=== PATIENT | female | born 1980 | race Caucasian/White ===

== ENCOUNTER 2017-02-06 11:36 | Emergency (ER) | payer OTHER ==
[~2017-02-06] VITALS: Ht 177.8 cm; Wt 81.8 kg
[~2017-02-06 11:36] MED LIST: NO HOME MEDICATIONS; PRENATAL1 TA1 PO; PROTONIX40 MG PO
[2017-02-06 11:39] VITALS: BP 121/52; TEMP 98.4
[2017-02-06] MEDS ORDERED: FLEXERIL 1010 MG/TAB PO (13:37)
[2017-02-06] MEDS ORDERED: NORCO 325 MG-51 TAB PO (13:37)
[2017-02-06 13:57] VITALS: PULSE 65
== END 2017-02-06 14:00 | disposition home or self-care (01) ==
LOC: COL.ER 11:36
DX: S16.1XXA Strain of muscle, fascia and tendon at neck level, initial encounter (principal); S39.012A Strain of muscle, fascia and tendon of lower back, initial encounter; V43.52XA Car driver injured in collision with other type car in traffic accident, initial encounter

== ENCOUNTER 2017-02-16 17:58 | Emergency (ER) | payer OTHER ==
[~2017-02-16] VITALS: Ht 177.8 cm; Wt 81.3 kg
[~2017-02-16 17:58] MED LIST changes: +FLEXERIL 1010 MG/TAB PO; +NORCO 325 MG-51 TAB PO
[2017-02-16 18:05] VITALS: TEMP 98.5
[2017-02-16 19:33] LABS: PH 5 (5-8); URINE APPEARANCE Hazy; URINE BACTERIA Rare /hpf; URINE BILIRUBIN Negative (NEGATIVE); URINE BLOOD Negative (NEGATIVE); URINE COLOR Yellow; URINE GLUCOSE Negative (NEGATIVE); URINE KETONE Trace (NEGATIVE)
[2017-02-16 20:49] VITALS: BP 117/81; PULSE 69
[2017-02-16] MEDS ORDERED: FLEXERIL 1010 MG/TAB PO (20:56)
== END 2017-02-16 21:08 | disposition home or self-care (01) ==
LOC: COL.ER 17:58
PROVIDERS: Nurse Practitioner
DX: S39.012A Strain of muscle, fascia and tendon of lower back, initial encounter (principal); M54.2 Cervicalgia; J45.909 Unspecified asthma, uncomplicated; G43.909 Migraine, unspecified, not intractable, without status migrainosus; Z98.890 Other specified postprocedural states; V49.40XA Driver injured in collision with unspecified motor vehicles in traffic accident, initial encounter
CPT/HCPCS: J1885

== ENCOUNTER 2017-03-29 14:00 | Outpatient (RCR) | payer OTHER ==
[2005-01-10 20:38] VITALS: PULSE 97; TEMP 99.3
== END 2017-05-26 13:12 | disposition home or self-care (01) ==
LOC: MKS.ESL.PT 14:00
DX: M54.5 Low back pain (principal); M54.2 Cervicalgia; V89.2XXS Person injured in unspecified motor-vehicle accident, traffic, sequela

== ENCOUNTER → 2017-04-18 | Outpatient (CLI) | payer OTHER ==
[2005-01-10 20:38] VITALS: PULSE 97; TEMP 99.3
== END ==
LOC: COL.RAD 14:27
DX: M43.8X4 Other specified deforming dorsopathies, thoracic region (principal); M54.5 Low back pain

== ENCOUNTER → 2017-05-25 | Outpatient (CLI) | payer OTHER ==
[2005-01-10 20:38] VITALS: TEMP 99.3
== END ==
LOC: COL.RAD 08:48
DX: M48.02 Spinal stenosis, cervical region (principal); M50.322 Other cervical disc degeneration at C5-C6 level; M50.31 Other cervical disc degeneration, high cervical region; M25.559 Pain in unspecified hip

== ENCOUNTER → 2017-06-23 | Outpatient (CLI) | payer OTHER ==
[2005-01-10 20:38] VITALS: TEMP 99.3
== END ==
LOC: COL.RAD 06-13 14:45
DX: M54.6 Pain in thoracic spine (principal)

== ENCOUNTER 2017-09-14 15:30 | Outpatient (RCR) | payer OTHER ==
[2005-01-10 20:38] VITALS: TEMP 99.3
== END 2017-09-25 | disposition home or self-care (01) ==
LOC: MKS.ESL.PT
DX: M54.5 Low back pain (principal); M54.2 Cervicalgia; V89.2XXS Person injured in unspecified motor-vehicle accident, traffic, sequela
CPT/HCPCS: G0283-GP

== ENCOUNTER 2017-11-22 12:45 | Outpatient (RCR) | payer OTHER ==
[2005-01-10 20:38] VITALS: TEMP 99.3
== END 2017-11-24 11:34 | disposition home or self-care (01) ==
LOC: MKS.ESL.PT 12:45
DX: M54.2 Cervicalgia (principal); M54.40 Lumbago with sciatica, unspecified side; V89.2XXD Person injured in unspecified motor-vehicle accident, traffic, subsequent encounter

== ENCOUNTER 2020-03-19 10:30 | Outpatient (RCR) | payer SELFPAY ==
[2005-01-10 20:38] VITALS: TEMP 99.3
== END 2020-04-15 | disposition home or self-care (01) ==
LOC: MKS.ESL.PT
DX: M53.3 Sacrococcygeal disorders, not elsewhere classified (principal)
CPT/HCPCS: G0283-GP

== ENCOUNTER 2021-04-19 13:19 | Emergency (ER) | payer OTHER ==
[~2021-04-19] VITALS: Ht 177.8 cm; Wt 81.8 kg
[2021-04-19 13:46] VITALS: TEMP 98.1
[2021-04-19] MEDS ORDERED: FLEXERIL 1010 MG/TAB PO (16:19)
[2021-04-19 16:28] VITALS: BP 130/64; PULSE 77
== END 2021-04-19 16:28 | disposition home or self-care (01) ==
LOC: COL.ER 13:19
DX: S16.1XXA Strain of muscle, fascia and tendon at neck level, initial encounter (principal); M25.511 Pain in right shoulder; R07.81 Pleurodynia; V48.5XXA Car driver injured in noncollision transport accident in traffic accident, initial encounter
CPT/HCPCS: J0780; J1885

== ENCOUNTER → 2022-10-06 | Outpatient (CLI) | payer SELFPAY ==
[2005-01-10 20:38] VITALS: TEMP 99.3
[~2022-10-06] MED LIST changes: +OMNICEF 300MG300 MG PO
== END ==
LOC: COL.RAD 05:28
DX: D25.9 Leiomyoma of uterus, unspecified (principal)

== ENCOUNTER 2023-06-24 13:42 | Emergency (ER) | payer SELFPAY ==
[~2023-06-24] VITALS: Ht 177.8 cm; Wt 81.8 kg
[2023-06-24 14:16] VITALS: TEMP 98.2
[2023-06-24 15:40] LABS: COLLECTION METHOD CLEAN CATCH
[2023-06-24 15:59] LABS: BASO # 0.1 K/mm3 (0.0-0.2); BASO % 0.6 % (0.0-2.0); EOS # 0.1 K/mm3 (0.0-0.7); EOS % 1.4 % (0.0-4.0); GRAN # 4.9 K/mm3 (1.4-6.5); GRAN % 63.5 % (42.2-75.2); HEMATOCRIT 43.1 % (37.0-47.0); LYMPH # 2.3 K/mm3 (1.2-3.4); LYMPH % 29.3 % (20.0-51.0); MEAN CELL VOLUME 89 fl (80.0-100.0); MEAN CORPUSCULAR HEMOGLOBIN 29 pg (27-31); MEAN CORPUSCULAR HGB CONC 33 g/dl (33.0-37.0); MEAN PLATELET VOLUME 11.5 fl (7.4-10.4); MONO # 0.4 K/mm3 (0.1-0.6); MONO % 5.1 % (1.7-9.3); PLATELET COUNT 210 K/mm3 (130-400); RED BLOOD COUNT 4.84 M/mm3 (4.10-5.30); REDCELL DISTRIBUTION WIDTH-CV 12.9 % (11.5-14.5)
[2023-06-24 16:11] LABS: PROTHROMBIN TIME 10.6 SECONDS (9.7-12.8)
[2023-06-24 16:12] LABS: CALCIUM 9.1 mg/dL (8.4-10.2); CREATININE, serum 0.74 mg/dL (0.57-1.11)
[2023-06-24 16:13] LABS: PARTIAL THROMBOPLASTIN TIME 30.4 SECONDS (26.0-37.0)
[2023-06-24 16:21] LABS: SQUAMOUS EPITHELIAL 0-2 /hpf (0-10); URINE APPEARANCE Clear (CLEAR/HAZY); URINE BACTERIA Occasional /hpf (NONE SEEN); URINE BLOOD Negative (NEGATIVE); URINE COLOR Yellow (YELLOW); URINE GLUCOSE Negative (NEGATIVE); URINE KETONE Negative (NEGATIVE); URINE NITRATE Negative (NEGATIVE); URINE PROTEIN(semi-quant) Negative (NEGATIVE); URINE RBC 0-2 /hpf (0-2); URINE UROBILINOGEN 0.2 E.U/dL (0.2-1.0)
[2023-06-24] MEDS ORDERED: ANUSOL-HC SUPPO25 MG RC (17:52)
[2023-06-24 18:04] VITALS: BP 142/89; PULSE 74
== END 2023-06-24 18:04 | disposition home or self-care (01) ==
LOC: COL.ER 13:42
PROVIDERS: Internal Medicine
DX: K64.8 Other hemorrhoids (principal); R10.2 Pelvic and perineal pain; Z85.42 Personal history of malignant neoplasm of other parts of uterus